=== PATIENT | male | born 1995 | race Hispanic/Latino ===

== ENCOUNTER 2017-03-05 21:30 | Emergency (ER) | payer BC ==
[2017-03-05 21:36] VITALS: BP 149/78; PULSE 75; RESP 19; TEMP 97.8; O2SAT 99
--- NOTE | 2017-03-05 23:02 | ED PDOC ---
Lower Extremity Pain/Injury Time Seen by Provider: 03/05/17 21:37 Chief Complaint (Nursing): Lower Extremity Problem/Injury Chief Complaint (Provider): Left ankle pain x 3 hours History Per: Patient History/Exam Limitations: no limitations Onset/Duration Of Symptoms: Days Current Symptoms Are (Timing): Still Present Severity: Moderate Pain Scale Rating Of: 7 Additional Complaint(s): Pt states he was doing a "back flip and landed short". Pt reports ankle pain. Pt states that he hyperdorsi flexed his ankle. PT denies numbness/tingling. Pt states he did similar on the left and broke his fibula. Pt did not take medicaitons for pain [employer]. No radiation of pain. PT states he cannot weight bear. Past Medical History Reviewed: Historical Data, Nursing Documentation, Vital Signs Vital Signs: Last Vital Signs Temp 97.8 F 03/05/17 21:34 Pulse 75 03/05/17 21:34 Resp 19 03/05/17 21:34 BP 149/78 03/05/17 21:34 Pulse Ox 99 03/05/17 21:34 - Medical History PMH: No Chronic Diseases - Surgical History Surgical History: No Surg Hx - Family History Family History: States: No Known Family Hx - Living Arrangements Living Arrangements: Other - Social History Current smoker - smoking cessation education provided: No - Home Medications Home Medications: Ambulatory Orders Medication Instructions Recorded Ibuprofen [Motrin Tab] 800 mg PO Q6H PRN #20 tab 03/05/17 - Allergies Allergies/Adverse Reactions: Allergies Allergy/AdvReac Type Severity Reaction Status Date / Time No Known Allergies Allergy Verified 03/05/17 21:36 Review of Systems ROS Statement: Except As Marked, All Systems Reviewed And Found Negative Musculoskeletal: Positive for: Other (Ankle pain, left ) Skin: Negative for: Bruising Physical Exam - Reviewed Nursing Documentation Reviewed: Yes Vital Signs Reviewed: Yes - Physical Exam Appears: Positive for: Well, Non-toxic, No Acute Distress Head Exam: Positive for: ATRAUMATIC, NORMAL INSPECTION, NORMOCEPHALIC Skin: Positive for: Normal Color (No ecchymosis ), Warm Eye Exam: Positive for: Normal appearance ENT: Positive for: Normal ENT Inspection Neck: Positive for: Normal, Painless ROM Respiratory: Negative for: Accessory Muscle Use, Respiratory Distress Back: Positive for: Normal Inspection Extremity: Positive for: Swelling. Negative for: Normal ROM (Decreased dorsiflexion due to pain ), Tenderness, Deformity Neurologic/Psych: Positive for: Alert, Oriented - ECG O2 Sat by Pulse Oximetry: 99 Pulse Ox Interpretation: Normal Medical Decision Making Medical Decision Making: (+) small chip on the anterior talus Disposition - Clinical Impression Clinical Impression: Talus fracture - Patient ED Disposition Is Patient to be Admitted: No Counseled Patient/Family Regarding: Diagnosis, Need For Followup - Disposition Referrals: Aracelis Hatch DPM [Staff Provider] - [facility] [Outside] Disposition: Routine/Home Disposition Time: 23:06 Condition: GOOD Prescriptions: Ibuprofen [Motrin Tab] 800 mg PO Q6H PRN #20 tab PRN Reason: Pain Instructions: Foot Fracture in Adults (ED) Forms: [facility] ([place])
--- NOTE | 2017-03-06 07:28 | RAD ---
HISTORY: Hyper dorsiflexion COMPARISON: No prior FINDINGS: BONES: Normal. No fracture. JOINTS: Normal. No osteoarthritis. SOFT TISSUE: Normal. OTHER FINDINGS: None . IMPRESSION: Normal Bone Xray.
--- NOTE | 2017-03-06 07:29 | RAD ---
HISTORY: pain, hyper dorsiflexion COMPARISON: No prior FINDINGS: BONES: Curvilinear osseous density dorsal to the talar head, possibly a fracture. Associated dorsal soft tissue swelling. JOINTS: Normal. No osteoarthritis. OTHER FINDINGS: None . IMPRESSION: Curvilinear osseous density dorsal to the talar head, possibly a fracture. Associated dorsal soft tissue swelling.
== END 2017-03-06 00:09 | disposition home or self-care (01) ==
LOC: H.ER 21:30
DX: S92.152A Displaced avulsion fracture (chip fracture) of left talus, initial encounter for closed fracture (principal); X50.9XXA Other and unspecified overexertion or strenuous movements or postures, initial encounter; Y92.89 Other specified places as the place of occurrence of the external cause